=== PATIENT | male | born 1970 | race Caucasian/White ===

== ENCOUNTER → 2016-12-12 | Outpatient (CLI) | payer BC ==
--- NOTE | 2016-12-12 13:48 | ECHOS ---
DATE OF SERVICE: 12/12/2016 AGE: 46Y SEX: M HT: 70" WT: 185 lbs. Protocol Jaswant: X Others: Stress Echo Stage: III Dur. of Exercise: 8 minutes *Heart Rate Blood Pressure *Rest: 90 Rest: 136/81 * *Max. Achieved: 158 Maximum BP: 193/54 85% PMHR: 146 100% PMHR: 172 *METS: 9.1 INDICATION OF THE STUDY: Chest pain. MEDICATIONS: STRESS DATA: Pretesting physical examination showed a heart rate of 90, pressure is 136/81 mmHg. Baseline EKG showed sinus mechanism. There is a right bundle branch block morphology. The patient exercised on the treadmill according to Jaswant protocol for a total of 8 minutes and achieved 9.1 METs. Max heart rate was 158, which is about 92% of maximum predicted heart rate. Maximum blood pressure was 193/54 mmHg. Clinically, the patient did not have any symptoms of chest pain or discomfort during the testing or in the recovery and the EKG did not show any significant ST or T wave abnormalities consistent with ischemia. ECHOCARDIOGRAM IMAGES: On echocardiogram images from parasternal long axis view, parasternal short axis view, apical 4 chamber view, and apical 2 chamber view, were obtained as baseline images, at the peak of the heart rate as well as on recovery and the echocardiogram images showed good augmentation in the left ventricular systolic function without any evidence of wall motion abnormalities consistent with ischemia. CONCLUSION: 1. Excellent exercise capacity. 2. Normal EKG in response to exercise. 3. Normal echocardiogram in response to exercise.
== END | disposition home or self-care (01) ==
LOC: RADNMMAIN 10:27
PROVIDERS: ATTEND Family Medicine
DX: Z01.810 Encounter for preprocedural cardiovascular examination (principal); R94.31 Abnormal electrocardiogram [ECG] [EKG]
CPT/HCPCS: 93017; 93350

== ENCOUNTER → 2018-09-24 | Outpatient (CLI) | payer BC ==
--- NOTE | 2018-09-24 08:20 | US ---
EXAMINATION TYPE: US abdomen complete DATE OF EXAM: 09/24/2018 COMPARISON: 01/21/2011 CT CLINICAL HISTORY: R10.11 Right upper quadrant pain. EXAM MEASUREMENTS: Liver Length: 15.1 cm Gallbladder Wall: 0.2 cm CBD: 0.5 cm Spleen: 9.9 cm Right Kidney: 11.1 x 4.6 x 5.6 cm Left Kidney: 10.1 x 5.7 x 4.7 cm Pancreas: Tail obscured by overlying bowel gas Liver: wnl Gallbladder: wnl Evidence for sonographic Lott's sign: No CBD: distal portion obscured by bowel gas Spleen: Limited visualization due to overlying bowel gas Right Kidney: No hydronephrosis or masses seen Left Kidney: No hydronephrosis or masses seen Upper IVC: wnl Abd Aorta: Proximal portion obscured by bowel gas, visualized portions show no sonographic evidence of AAA The liver is homogenous. The intrahepatic portion of the IVC and proximal abdominal aorta are within normal limits. There is no evidence of cholelithiasis. Common bile duct is unremarkable. The visu alized portions of the pancreas are homogenous. The spleen is unremarkable. Kidneys are symmetric a nd free of hydronephrosis. No renal lesions are seen. IMPRESSION: 1. No significant abnormality appreciated.
== END | disposition home or self-care (01) ==
LOC: RADUSWWP 07:25
PROVIDERS: ATTEND Family Medicine
DX: R10.11 Right upper quadrant pain (principal)
CPT/HCPCS: 76700